=== PATIENT | male | born 1965 | race Caucasian/White ===

== ENCOUNTER 2024-01-11 14:54 | Oncology outpatient (recurring) (ONCR) | payer MEDICARE, MEDICAID, SELFPAY ==
[2024-01-11 16:19] LABS: Basophils # 0.1 10^3/uL (0.0-0.1); Basophils % 0.8 %; Eosinophils # 0.4 10^3/uL (0.0-0.8); Eosinophils % 4.6 %; Hematocrit 44.4 % (37-53); Lymphocytes # 2.1 10^3/uL (0.8-4.8); Lymphocytes % 28.3 %; Mean Corpuscular Hemoglobin 32.5 pg (27-33); Mean Corpuscular Volume 95.7 fl (82-101); Mean Platelet Volume 10.5 fL (7.4-10.4); Monocytes # 0.8 10^3/uL (0.2-0.9); Neutrophils # 4.21 10^3/uL (1.8-7.7); Neutrophils % 55.9 %; Nucleated Red Blood Cells % 0 %; Platelet Count 173 10^3/cmm (157-399); Red Blood Count 4.64 10^6/uL (3.85-5.65); White Blood Count 7.53 10^3/uL (3.29-11.43)
[2024-01-11 16:43] LABS: Albumin Level 4.7 g/dL (3.5-5.2); Alkaline Phosphatase 105 U/L (40-130); Anion Gap 18.8 (5-19); Aspartate Amino Transferase 21 U/L (0-40); Blood Urea Nitrogen 15 mg/dL (6-20); Calcium 9.6 mg/dL (8.5-10.5); Carbon Dioxide 23 mmol/L (22-29); Chloride 105 mmol/L (98-107); Creatinine Clr Calc Pharmacy 132.8173; Globulin 2.4 g/dL (1.3-4.6); Glomerular Filtration Rate 99.6 mL/min (90-130); Glucose 104 mg/dL (65-115); Lactate Dehydrogenase 188 U/L (135-225); Osmolality Calculated 297 mOsm/kg (285-295); Potassium 3.8 mmol/L (3.5-5.1); Sodium 143 mmol/L (136-145); Thyroid Stimulating Hormone 1.55 uIU/mL (0.27-4.20); Total Bilirubin 0.3 mg/dL (0.15-1.2); Total Protein 7.1 g/dL (6.6-8.7)
[2024-01-11 16:53] LABS: Alanine Aminotransferase 22 U/L (0-41)
[2024-01-11 16:54] LABS: Estmated Average Glucose 123; Hemoglobin A1C 5.9 % (4.0-6.0)
== END 2024-02-06 23:59 | disposition home or self-care (01) ==
PROVIDERS: Visit Provider Internal Medicine Medical Oncology
DX: C85.90 Non-Hodgkin lymphoma, unspecified, unspecified site (principal); R53.83 Other fatigue; E11.9 Type 2 diabetes mellitus without complications; C83.39 Diffuse large B-cell lymphoma, extranodal and solid organ sites; Z79.899 Other long term (current) drug therapy
CPT/HCPCS: 36415; 80053; 83036; 83615; 84443; 85025; 99205

== ENCOUNTER 2024-03-05 10:02 | Outpatient (CLI) | payer MEDICARE, MEDICAID, SELFPAY ==
--- NOTE | 2024-03-05 10:00 | PETR_ITS ---
PROCEDURE INFORMATION: Exam: PET/CT Skull Base to Mid-thigh Exam date and time: 03/05/2024 11:54 AM Age: 58 years old Clinical indication: Condition or disease; Primary cancer: Diffuse b cell lymphoma; Initial oncological staging assessment LABS AND CLINICAL REPORTS: Glucose: 106 mg/dl Treatment strategy for malignancy (PET staging): Initial Staging (PI) TECHNIQUE: Imaging protocol: Following at least four-hour fasting and following the injection of radiopharmaceutical, low dose CT images were obtained. Then, PET images were obtained. Attenuation corrected images were constructed using the CT scan. Fused images of PET and CT were reviewed. The standardized uptake values (SUV) reported below are maximum values within a region of interest, expressed in gm/ml. Exam includes orbital meatal line to mid-thigh. Radiopharmaceutical: 10.95 mCi F-18 FDG (Fluorodeoxyglucose), IV. Time of imaging post radiopharmaceutical administration: 1 hour Injection site: Right antecubital COMPARISON: No relevant prior studies available. FINDINGS: Brain: Visualized brain has normal physiologic uptake. Pharynx: No abnormal uptake. Larynx: No abnormal uptake. Lungs, pleura and trachea: No abnormal uptake. A left lower lobe calcified granuloma is noted. Moderate paraseptal emphysematous changes in the upper lobes are present. Heart: Normal physiologic uptake. Mediastinal space: No abnormal uptake. Liver: An ill-defined region of inferior medial uptake in the right lobe of the liver is noted, SUV max 5.1 on series 3, image 153 without a definite correlating lesion on the noncontrast CT images. Gallbladder and bile ducts: No abnormal uptake. Cholecystectomy clips are present. Pancreas: No abnormal uptake. Spleen: No abnormal uptake. Adrenal glands: No abnormal uptake. Kidneys and ureters: Normal physiologic uptake. A non radiotracer avid ovoid low-density structure in the posterior left kidney measures 2.6 x 2.2 cm on series 3, image 148 likely representing a benign cyst. Unremarkable right kidney. Stomach and bowel: No abnormal uptake. Vasculature: No abnormal uptake. Lymph nodes: No abnormal uptake. A mildly prominent right paratracheal lymph node measuring 1.7 x 1.3 cm on series 3, image 75 demonstrates an SUV max 1.4. There is an enlarged subcarinal soft tissue density lymph node or mass measuring 3.5 x 3.0 cm on series 3, image 95, SUV max 2.0. Skeleton: No abnormal uptake in the visualized axial and appendicular skeleton. There is mild to moderate diffuse degenerative vertebral body spondylosis. Soft tissues: No abnormal uptake in the visualized head, neck, chest, abdomen, pelvis, and extremities. METRICS: Mediastinal blood pool: SUV max 2.1 Liver uptake: SUV max 3.9, SUV mean 2.7 PET/PET skulltothigh INITIAL [id number] IMPRESSION: 1. A soft tissue density mass or lymph node in the subcarinal space is noted with mild uptake slightly less than mediastinal blood pool activity. The possibility of non hypermetabolic malignancy in this region is not excluded. 2. A non radiotracer avid right paratracheal lymph node is noted, likely benign. 3. Mild uptake in the inferior medial aspect of the right lobe of the liver is noted which may be physiologic or possibly associated with normal physiologic uptake in the adjacent right colon. The possibility of a radiotracer avid region of malignancy in this location cannot be entirely excluded. Consider dedicated multiphasic abdominal CT or MRI with liver protocol for further evaluation. 4. Additional nonurgent findings as detailed above.
== END 2024-03-05 10:03 | disposition home or self-care (01) ==
LOC: RAD 10:02
PROVIDERS: Visit Provider Nurse Practitioner Family
DX: C83.39 Diffuse large B-cell lymphoma, extranodal and solid organ sites (principal); J84.10 Pulmonary fibrosis, unspecified; J43.9 Emphysema, unspecified; Z98.890 Other specified postprocedural states; R93.2 Abnormal findings on diagnostic imaging of liver and biliary tract; N28.89 Other specified disorders of kidney and ureter; I89.8 Other specified noninfective disorders of lymphatic vessels and lymph nodes
CPT/HCPCS: 78815; A9552

== ENCOUNTER 2024-09-27 12:30 | Oncology outpatient (recurring) (ONCR) | payer MEDICARE, MEDICAID, SELFPAY ==
[2024-09-10] MEDS: iohexol 350 mg/mL 500 mL Btl (per mL) PO (09:28)
--- NOTE | 2024-09-10 09:30 | CT_ITS ---
WS: [id number] CT CHEST, ABDOMEN, AND PELVIS TECHNIQUE: Contrast-enhanced CT of the chest, abdomen, and pelvis with coronal and sagittal reformatt ed images. CLINICAL INFORMATION: compare to previous COMPARISON: PET/CT 03/05/2024 DLP: 1528.[address] scans at [facility] use at least one of these dose optimization techniques: automated e xposure control; mA and/or kV adjustment per patient size (includes targeted exams where dose is matc hed to clinical indication); or iterative reconstruction. CT CHEST: Lungs are well aerated. Moderate chronic emphysematous changes. No suspicious pulmonary parenchymal o pacities. Calcified granuloma LEFT lower lobe. Mild thoracic curve. Mild thoracic kyphosis. Aortic ca lcification. Normal caliber thoracic aorta. No mediastinal or hilar lymphadenopathy. Subcarinal low-a ttenuation nodule measuring 2.8 x 3.2 x 4.1 cm is unchanged since the prior PET/CT. 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 CT ABDOMEN AND PELVIS: Hepatomegaly. Diffuse fatty infiltration of the liver. Prior cholecystectomy. Normal GE junction. Sma ll splenule. Adrenal glands are normal. Normal caliber abdominal aorta. Aortic calcification. No hydr onephrosis in either kidney. LEFT renal cyst measuring 2.2 cm. Cortical scarring upper pole LEFT kidn ey. Normal caliber abdominal aorta. Small fat-containing umbilical hernia. Enlarged calcified prostat e measuring 3.8 cm. Fat-containing inguinal hernias. No periaortic or retroperitoneal lymphadenopathy . No abdominal or pelvic lymphadenopathy. No abnormalities in the liver to correspond to the PET/CT f indings in the RIGHT hepatic lobe. CT/CT chest abdpel w/*[id number] IMPRESSION: 1. Stable subcarinal low-attenuation nodule unchanged to the prior PET/CT. Thi s was non-FDG avid on the prior study. 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 2. Otherwise no mediastinal or hilar lymphadenopathy. 3. No lymphadenopathy abdomen or pelvis. 4. Prior cholecystectomy. 5. Hepatomegaly with diffuse fatty infiltration of the liver. 6. Mild prostate enlargement. Recommend correlation PSA.
--- NOTE | 2024-09-10 10:00 | CT_ITS ---
WS: [id number] CT NECK TECHNIQUE: Contrast-enhanced CT of the neck with coronal and sagittal reformatted images. CLINICAL INFORMATION: compare to previous COMPARISON: PET/CT 03/05/2024 DLP: 239.[address] scans at [facility] use at least one of these dose optimization techniques: automated e xposure control; mA and/or kV adjustment per patient size (includes targeted exams where dose is matc hed to clinical indication); or iterative reconstruction. FINDINGS: Paranasal sinuses are well aerated. Mastoid air cells are well aerated. Parotid glands are normal. No rmal submandibular glands. Normal posterior nasopharynx. Normal parapharyngeal fat. No evidence of tan praglottic or glottic mass. Normal subglottic airway. Thyroid gland is normal. Straightening of the n ormal cervical lordosis. Mild spondylitic changes. Numerous normal sized cervical lymph nodes. Number of lymph nodes appears progressed from the prior P ET/CT. Largest lymph node posterior to the RIGHT sternocleidomastoid measuring 9.8 mm is progressed a nd suspicious in appearance for progression. CT/CT neck w con* [id number] IMPRESSION: 1. Progressed RIGHT level IV cervical lymph node measuring 9.8 mm. This is pro gressed compared to the prior PET/CT suspicious for recurrence/progression. 2. Largest left-sided cervical lymph nodes measure 8 to 9 mm. 3. Numerous subcentimeter cervical lymph nodes bilaterally have progressed in number and size since 03/05/2024 the largest measuring 8 to 9 mm. 4. No other acute findings.
[2024-09-10] MEDS: iohexol 350 mg/mL 500 mL Btl (per mL) IV ×2 (10:47)
[2024-09-10 11:11] LABS: Basophils % 0.3 %; Eosinophils # 0.2 10^3/uL (0.0-0.8); Eosinophils % 1.4 %; Hematocrit 40.1 % (37-53); Lymphocytes # 1.6 10^3/uL (0.8-4.8); Mean Corpuscular HGB Conc 33.2 g/dL (30-55); Mean Corpuscular Hemoglobin 31.5 pg (27-33); Mean Platelet Volume 10.7 fL (7.4-10.4); Monocytes % 9.2 %; Neutrophils # 7.92 10^3/uL (1.8-7.7); Neutrophils % 73.7 %; Nucleated Red Blood Cells % 0 %; Platelet Count 158 10^3/cmm (157-399); Red Blood Count 4.22 10^6/uL (3.85-5.65); Red Cell Distribution Width 12.9 % (12.1-15.1); White Blood Count 10.74 10^3/uL (3.29-11.43)
[2024-09-10 11:29] LABS: Alanine Aminotransferase 132 U/L (0-41); Albumin Level 4.3 g/dL (3.5-5.2); Alkaline Phosphatase 186 U/L (40-130); Aspartate Amino Transferase 52 U/L (0-40); Blood Urea Nitrogen 19 mg/dL (6-20); Carbon Dioxide 25 mmol/L (22-29); Chloride 97 mmol/L (98-107); Globulin 1.9 g/dL (1.3-4.6); Glucose 119 mg/dL (65-115); Osmolality Calculated 281 mOsm/kg (285-295); Sodium 134 mmol/L (136-145); Total Bilirubin 0.4 mg/dL (0.15-1.2); Total Protein 6.2 g/dL (6.6-8.7)
[2024-09-10 11:33] LABS: Anion Gap 15.9 (5-19); Lactate Dehydrogenase 212 U/L (135-225); Potassium 3.9 mmol/L (3.5-5.1)
--- NOTE | 2024-09-27 12:30 | PETR_ITS ---
PROCEDURE INFORMATION: Exam: PET/CT Skull Base to Mid-thigh Exam date and time: 09/27/2024 12:50 PM Age: 58 years old Clinical indication: Condition or disease; Primary cancer: Non hodgkins lymphoma; Prior surgery; Surgery date: 6+ months; Surgery type: Tonsils, throat, hemmrhoids. Gb; Additional info: Restaging, abnormal CT LABS AND CLINICAL REPORTS: Glucose: 114 mg/dl Treatment strategy for malignancy (PET staging): Restaging (PS) TECHNIQUE: Imaging protocol: Following at least four-hour fasting and following the injection of radiopharmaceutical, low dose CT images were obtained. Then, PET images were obtained. Attenuation corrected images were constructed using the CT scan. Fused images of PET and CT were reviewed. The standardized uptake values (SUV) reported below are maximum values within a region of interest, expressed in gm/ml. Exam includes orbital meatal line to mid-thigh. SUV normalization method: BodyWeight Radiopharmaceutical: 11.59 mCi F-18 FDG (Fluorodeoxyglucose), IV. Time of imaging post radiopharmaceutical administration: 46 minutes Injection site: RIGHT HAND COMPARISON: 1. PT PET skull to thigh INIT [id number] 03/05/2024 11:[address] neck w con* [id number] 09/10/2024 10:[address] chest abdpel w/*[id number] 09/10/2024 10:22 AM FINDINGS: Brain: Visualized brain has normal physiologic uptake. Pharynx: Bilateral adenoidal FDG uptake with SUV max 14.1. No discrete underlying CT abnormality. Symmetric FDG uptake in the region of the lingual tonsils with SUV max 9.3, no discrete underlying CT abnormality. Larynx: Symmetric FDG uptake without underlying CT abnormality is likely benign. Lungs, pleura and trachea: No abnormal uptake. Saber sheath morphology of the trachea and upper lung predominant emphysematous change in keeping with COPD. No consolidation or mass. Left lower lobe calcified granuloma. Heart: Normal physiologic uptake. Mediastinal space: Stable size photopenic 4.1 x 2.9 cm hypodense right subcarinal mass. Liver: No abnormal uptake. Gallbladder and biliary ducts: No abnormal uptake. Prior cholecystectomy. Pancreas: No abnormal uptake. Spleen: No abnormal uptake. No splenomegaly. Adrenal glands: No abnormal uptake. Kidneys and ureters: Normal physiologic uptake. Photopenic fluid density left renal cyst. Stomach and bowel: Focal FDG uptake at the distal transverse colon with underlying thickening in the setting of underdistention shows SUV max 5.2 on axial image 168. More avid FDG uptake along the decompressed descending colon to the rectum. Vasculature: No abnormal uptake. Mild systemic atherosclerotic calcification without aortic aneurysm. Lymph nodes: No abnormal uptake. No lymphadenopathy in the head, neck, chest, abdomen, pelvis, and extremities. Specifically, enlarged cervical lymph nodes on recent comparison neck CT have resolved. Calcified left hilar lymph nodes in keeping with sequela of old granulomatous disease. Skeleton: No abnormal uptake in the visualized axial and appendicular skeleton. Soft tissues: No abnormal uptake in the visualized head, neck, chest, abdomen, pelvis, and extremities. Small fat containing bilateral inguinal hernias. METRICS: Mediastinal blood pool: SUV mean 2.4 Liver uptake: SUV mean 3.1 PET/PET skull to thigh SUBS [id number] IMPRESSION: 1. Bilateral adenoidal and lingual tonsillar FDG uptake without underlying CT abnormality may be physiologic or inflammatory, malignancy not excluded. 2. No FDG avid lymphadenopathy. Specifically, intervally resolved cervical lymphadenopathy. 3. Stable photopenic 4.1 cm hypodense right subcarinal mass, favor benign etiology such as duplication cyst. 4. Distal colon FDG uptake may be physiologic or inflammatory, query metformin use. Neoplasm less likely but not entirely excluded, particularly at site of more focal uptake at the distal transverse colon.
== END 2024-10-08 23:59 | disposition home or self-care (01) ==
LOC: RAD 09-28 00:01 → ONCMED 09-30 09:54
PROVIDERS: Internal Medicine Medical Oncology; Visit Provider Nurse Practitioner Family
DX: Z53.9 Procedure and treatment not carried out, unspecified reason (principal); C85.99 Non-Hodgkin lymphoma, unspecified, extranodal and solid organ sites; R93.3 Abnormal findings on diagnostic imaging of other parts of digestive tract
CPT/HCPCS: 36415; 70491; 71260; 74177; 78815; 80053; 83615; 85025; 99213; A9552

== ENCOUNTER 2024-10-17 10:13 | Oncology outpatient (recurring) (ONCR) | payer MEDICARE, MEDICAID, SELFPAY | END 2024-11-08 23:59 | disposition home or self-care (01) | PROVIDERS: Visit Provider Nurse Practitioner Family | DX: C83.398 Diffuse large B-cell lymphoma of other extranodal and solid organ sites (principal) | CPT/HCPCS: 99213 ==

== ENCOUNTER 2025-02-25 09:41 | Oncology outpatient (recurring) (ONCR) | payer MEDICARE, MEDICAID, SELFPAY | END 2025-03-08 23:59 | disposition home or self-care (01) | LOC: ONCMED 09:44 | PROVIDERS: PCP Nurse Practitioner Family; Visit Provider Nurse Practitioner Family | DX: C83.398 Diffuse large B-cell lymphoma of other extranodal and solid organ sites (principal); Z53.9 Procedure and treatment not carried out, unspecified reason; R53.83 Other fatigue; E11.9 Type 2 diabetes mellitus without complications; Z79.899 Other long term (current) drug therapy; C85.90 Non-Hodgkin lymphoma, unspecified, unspecified site; C83.39 Diffuse large B-cell lymphoma, extranodal and solid organ sites | CPT/HCPCS: 99214 ==

== ENCOUNTER 2025-04-17 09:47 | Oncology outpatient (recurring) (ONCR) | payer MEDICARE, MEDICAID, SELFPAY ==
[2025-04-17 10:16] LABS: Hematocrit 42.7 % (37-53); Hemoglobin 14.20 g/dL (11.27-16.99); Mean Corpuscular HGB Conc 33.3 g/dL (30-55); Mean Corpuscular Hemoglobin 31.4 pg (27-33); Mean Corpuscular Volume 94.5 fl (82-101); Nucleated Red Blood Cells % 0 %; Platelet Count 185 10^3/cmm (157-399); Red Blood Count 4.52 10^6/uL (3.85-5.65); White Blood Count 9.60 10^3/uL (3.29-11.43)
[2025-04-17 10:37] LABS: Alanine Aminotransferase 25 U/L (0-41); Albumin Level 4.3 g/dL (3.5-5.2); Alkaline Phosphatase 110 U/L (40-130); Anion Gap 15.9 (5-19); Aspartate Amino Transferase 26 U/L (0-40); Blood Urea Nitrogen 16 mg/dL (6-20); Calcium 9.7 mg/dL (8.5-10.5); Carbon Dioxide 26 mmol/L (22-29); Chloride 102 mmol/L (98-107); Creatinine Clr Calc Pharmacy 96.3764; Globulin 2.3 g/dL (1.3-4.6); Glucose 89 mg/dL (65-115); Osmolality Calculated 289 mOsm/kg (285-295); Potassium 4.9 mmol/L (3.5-5.1); Sodium 139 mmol/L (136-145); Total Protein 6.6 g/dL (6.6-8.7); Uric Acid 3.9 mg/dL (3.4-7.0)
== END 2025-05-08 23:59 | disposition home or self-care (01) ==
PROVIDERS: Internal Medicine; PCP Nurse Practitioner Family; Visit Provider Nurse Practitioner Family
DX: Z08 Encounter for follow-up examination after completed treatment for malignant neoplasm (principal); Z85.72 Personal history of non-Hodgkin lymphomas; R61 Generalized hyperhidrosis; R11.0 Nausea; M54.50 Low back pain, unspecified; Z79.899 Other long term (current) drug therapy; Z87.891 Personal history of nicotine dependence; Z92.3 Personal history of irradiation; Z92.21 Personal history of antineoplastic chemotherapy
CPT/HCPCS: 36415; 80053; 82232; 83010; 83615; 84550; 85025; 85651; 99213